=== PATIENT | female | born 1995 | race Two or more races ===

== ENCOUNTER 2019-10-01 11:57 | Emergency (ER) | payer SELFPAY ==
[~2019-10-01] VITALS: Ht 162.6 cm; Wt 88.9 kg
[2019-10-01 12:00] VITALS: BP 152/84
--- NOTE | 2019-10-01 12:14 | NUR ---
AT BEDSIDE FOR EVAL.
--- NOTE | 2019-10-01 12:25 | NUR ---
URINE SAMPLE COLLECTED AND SENT TO LAB
[2019-10-01 12:30] LABS: APPEARANCE,URINE Cloudy (CLEAR); BILIRUBIN,URINE Negative (NEGATIVE); BLOOD, URINE Large Ery/uL (NEGATIVE); COLOR,URINE Amber (YELLOW); KETONES,URINE Negative (NEGATIVE); LEUKOCYTE ESTERASE ,URINE Negative (NEGATIVE); NITRITE, URINE Positive (NEGATIVE); PROTEIN,URINE 30 mg/dl (NEGATIVE); UGLUCOSE Negative (NEGATIVE); UROBILINOGEN,URINE 0.2 EU/dL (0.2)
[2019-10-01 12:36] LABS: BACTERIA,URINE Many /HPF (None Seen); RBC,URINE TOO NUMEROUS TO COUN /HPF (0-2); SQUAMOUS EPITHELIAL CELL,UR Few /HPF (None Seen); WBC,URINE 0-2 /HPF (0-3)
--- NOTE | 2019-10-01 12:40 | NUR ---
CHAPERONED DR LUKE DURING PELVIC EXAM
--- NOTE | 2019-10-01 12:52 | NUR ---
Patient discharged to home in stable condition. Written and verbal after care instructions given. Patient verbalizes understanding of instruction.
== END 2019-10-01 12:53 | disposition home or self-care (01) ==
LOC: ER 11:57
DX: N76.0 Acute vaginitis (principal)
CPT/HCPCS: 81001; 84703; 87086; 99283; A6403; 81000-TC